=== PATIENT | female | born 1985 | race African-American/Black ===

== ENCOUNTER 2016-12-15 21:29 | Emergency (ER) | payer MEDICAID ==
[~2016-12-15] VITALS: Ht 165.1 cm; Wt 95.2 kg
--- NOTE | ~2016-12-15 | CT2 ---
[facility] A Service of [facility] RADIOLOGY TEXT RESULTS PATIENT: RUPERTO HUSTON LOCATION: [facility]FT[facility] : 89 UNIT #: [id number] AGE: [address]: Luciano Montano SEX: F ORDER DR: [id number] [place], [place] [address] [id number] MR#: [id number] Acc #: [id number] NAME: RUPERTO HUSTON : 1985 SEX: F STUDY DATE/TIME: 12/16/2016 1:14 UNIT: CFTX ROOM: STUDY DESCRIPTION: CT Abd and Pelv W Cont Attending Physician: Luciano Montano Ordering Physician: Luciano Montano Primary Care Physician: Primary Care Physician No MEDICAL IMAGING REPORT This report is preliminary unless electronic signature is present EXAM CT abdomen and pelvis with contrast INDICATION Abdominal cramping, heavy vaginal bleeding for the past 2 days with right-sided abdominal pain. PROCEDURE Contrast-enhanced CT of the abdomen and pelvis. This CT examination was performed with one or more of the following radiation dose reduction techniques: automatic exposure control, adjustment of mA and/or kV according to patient size, and iterative reconstruction. COMPARISON None. FINDINGS ABDOMEN WITH CONTRAST: Included lung bases are clear. The liver, spleen, kidneys, adrenal glands, pancreas and gallbladder show no acute abnormality. 4-5 mm stone in the gallbladder, but no evidence for active inflammation. Moderate colonic stool burden. Appendix is not well seen on this study but is nondilated. PELVIS WITH CONTRAST: 2.8 cm cyst in the right adnexa. Small amount of fluid in the pelvis. No aggressive appearing bone lesion. IMPRESSION 1. No acute findings. 2. 2.8 cm right adnexal cyst within physiologic limits for the patient's age. 3. Uncomplicated cholelithiasis. 4. Appendix not well seen but visualized portions are nondilated. [facility] A Service of [facility] RADIOLOGY TEXT RESULTS PATIENT: RUPERTO HUSTON LOCATION: [place] : [birth year] UNIT #: [id number] AGE: [address]: Luciano Montano SEX: F ORDER DR: Dictated by... Ac Ordonez M.D. THIS IS AN ELECTRONICALLY VERIFIED REPORT Ac Ordonez M.D. at 12/16/2016 9:52 PM ADEN/eileen TD: 12/16/2016 13:39 JOB #: [id number] MEDICAL IMAGING REPORT Page 1 of 1 COPY
[2016-12-15 23:26] LABS: URINE SOURCE CLEAN CATCH
[2016-12-15 23:31] LABS: URINE APPEARANCE CLEAR; URINE BILIRUBIN NEG (NEG); URINE BLOOD 3+ (NEG); URINE COLOR YELLOW; URINE GLUCOSE NEG (NEG); URINE KETONE TRACE (NEG); URINE LEUKOCYTE ESTERASE NEG (NEG); URINE NITRATE NEG (NEG); URINE PROTEIN NEG (NEG); URINE SPECIFIC GRAVITY 1.022 (1.003-1.035); URINE UROBILINOGEN 0.2 MG/DL (NEG)
[2016-12-15 23:34] LABS: URBCS1 AUWI 0-2 /[HPF] (0-2); URINE BACTERIA AUWI NEG (NEGATIVE); URINE SQUAMOUS EPITHELIAL CELL NONE SEEN /[HPF]; UWBCS1 AUWI 0-2 (0-5)
[2016-12-15 23:35] LABS: CULTURE INDICATED? NO
[2016-12-16 00:05] LABS: BASOPHIL# 0.1 X10e3 (0-0.3); BASOPHIL% 1.2 % (0-2.5); EOSINOPHIL# 0.1 X10e3 (0-0.7); EOSINOPHIL% 1.2 % (0.0-7.0); HEMATOCRIT 37.9 % (35.0-45.0); HEMOGLOBIN 12.2 gm/dL (12.0-16.0); LYMPHOCYTE# 3.7 X10e3 (1.0-3.5); LYMPHOCYTE% 44.9 % (17.0-45.0); MEAN CELL VOLUME 80.3 FL (83-96); MEAN CORPUSCULAR HEMOGLOBIN 25.9 PG (28-34); MEAN CORPUSCULAR HGB CONC 32.3 g/dL (30-36); MEAN PLATELET VOLUME 9.6 FL (6.5-11.5); MONOCYTE# 0.6 X10e3 (0-1.0); MONOCYTE% 7.5 % (3.0-12.0); NEUTROPHIL# 3.7 X10e3 (1.5-7.1); NEUTROPHIL% 45.2 % (40-75); PLATELET COUNT 220 X10e3 (140-420); RED BLOOD COUNT 4.72 X10e (3.90-5.30); RED CELL DISTRIBUTION WIDTH 13.9 % (11.0-15.5); WHITE BLOOD COUNT 8.3 X10e3 (4.0-10.5)
[2016-12-16 00:06] LABS: DIFF IND NO
[2016-12-16 00:28] LABS: ALBUMIN SERUM 4.3 g/dL (3.5-5.0); BILIRUBIN,TOTAL 0.6 mg/dL (0.2-2.0); CALCIUM SERUM 8.7 mg/dL (8.4-10.2); GLOM FILT RATE Estimated 88.2 mL/min (>60); POTASSIUM 3.5 mmol/L (3.5-5.1); PROTEIN TOTAL SERUM 7.7 g/dL (6.0-8.3)
[2016-12-18 00:31] LABS: CHLAMYDIA TRACH Not Detected (Not Detected); N GONOR Not Detected (Not Detected)
[2017-02-09] MEDS ORDERED: BENAZEPRIL HCL40 MG PO (13:50)
[2017-02-09] MEDS ORDERED: HYDROCHLOROTHIA25 MG PO (13:51)
[2017-02-09] MEDS ORDERED: CLARITIN10 M3 PO (13:51)
== END 2016-12-16 02:33 | disposition home or self-care (01) ==
LOC: CED 21:29 → CFTX 21:29
PROVIDERS: Nurse Practitioner
DX: N76.0 Acute vaginitis (principal); I12.9 Hypertensive chronic kidney disease with stage 1 through stage 4 chronic kidney disease, or unspecified chronic kidney disease; I50.9 Heart failure, unspecified; N83.209 Unspecified ovarian cyst, unspecified side; F17.210 Nicotine dependence, cigarettes, uncomplicated; Z88.5 Allergy status to narcotic agent
CPT/HCPCS: 36415; 74177; 80053; 81003; 83690; 84703; 85025; 87491; 87591; 87808; 87905; 96374; 99284; J1885; Q9967

== ENCOUNTER → 2017-02-10 | Day surgery (SDC) | payer MEDICAID ==
[~2017-02-10] MED LIST: BENAZEPRIL HCL40 MG PO; CLARITIN10 M3 PO; HYDROCHLOROTHIA25 MG PO
--- NOTE | ~2017-02-10 | OR ---
Unit #: [id number] #: [id number] Patient: RUPERTO HUSTON [id number] [address] [place], [place] [address] [id number] O MR#: [id number] NAME: RUPERTO HUSTON ROOM: Date of Procedure: 02/10/2017 Admission Date: 02/10/2017 Surgeon: Rob Arreola Jr., M.D. : 1985 Attending Physician: Rob Arreola Jr., M.D. Primary Care Physician: Armando Knox OPERATIVE REPORT INDICATIONS FOR PROCEDURE The patient is a 31-year-old obese black female, who recently presented to the office complaining of abdominal pain with severe diarrhea. There is a question that she may have colitis, also she has had a strong family history of colon polyps and it was felt for these 2 reasons she needed a colonoscopy. PREOPERATIVE DIAGNOSIS Possible colitis, possible colon polyps. POSTOPERATIVE DIAGNOSIS Normal exam to the distal ileum. There were a few diverticula in the left colon. ANESTHESIA MAC anesthesia. PROCEDURE PERFORMED Flexible colonoscopy to the distal ileum. DESCRIPTION OF PROCEDURE The patient was positioned in Rodriguez position with left side down. After being given MAC anesthesia, digital rectal examination was performed, which revealed no palpable mass or tenderness. No blood or stool in the rectal ampulla. The Olympus colonoscope was advanced in the anal canal up the rectum and retroflexed down to the area of the anorectal region. There was no evidence of any fissures. No significant internal hemorrhoids. The scope was then straightened and advanced up in the rectosigmoid, in the sigmoid and descending colon areas, where there were only one or two diverticula encountered without diverticulitis. The scope was then advanced around the splenic flexure and the transverse colon, around hepatic flexure and ascending colon, down in the area of the cecum. The light from the tip of the scope could be seen transilluminating through the right lower quadrant abdominal wall area. The scope was advanced up the distal ileum approximately 10 to 12 inches. There was no evidence of any ileitis or inflammatory bowel disease. The scope was slowly removed. There were no tumors, polyps, cancer, or AVMs. No evidence of any colitis or acute diverticulitis. The caliber of the colon appeared normal throughout without evidence of narrowing or obstruction. The scope was removed. The patient tolerated the procedure well and discharged in satisfactory condition. Unit #: [id number] #: [id number] Patient: RUPERTO HUSTON Dictated by... Rob Arreola Jr., MEsther HARMON/jesse TD: 02/10/2017 12:11 JOB #: [id number] OPERATIVE REPORT Page 1 of 1 X Rob Arreola MD X PROCEDURE OPERATIVE NOTE
--- NOTE | ~2017-02-10 | EKG ---
PATIENT: RUPERTO HUSTON UNIT #: [id number] Ventricular Rate: 56 BPM Atrial Rate: 56 BPM P-R Interval: 166 ms QRS Duration: 84 ms Q-T Interval: 430 ms QTC Calculation(Bezet): 414 ms P Firebaugh: 0 degrees Calculated R Firebaugh: 15 degrees Calculated T Firebaugh: 3 degrees Diagnosis Line: Sinus bradycardia with sinus arrhythmia Diagnosis Line: Otherwise normal ECG Diagnosis Line: No previous ECGs available Diagnosis Line: Confirmed by ANIA SADLER MD ([id number]) on Diagnosis Line: 02/10/2017 2:11:36 PM INTERPRETING MD: VIKTORIYA RIOS
[2017-02-10 10:15] LABS: ALBUMIN SERUM 3.6 g/dL (3.5-5.0); BILIRUBIN,TOTAL 0.8 mg/dL (0.2-2.0); BUN/CREATININE RATIO 7.77; CALCIUM SERUM 8.7 mg/dL (8.4-10.2); CREATININE SERUM 0.9 mg/dL (0.6-1.4); GLOM FILT RATE Estimated 100.2 mL/min (>60); POTASSIUM 3.9 mmol/L (3.5-5.1)
== END | disposition home or self-care (01) ==
LOC: COPS 08:29
PROVIDERS: Surgery
DX: K57.30 Diverticulosis of large intestine without perforation or abscess without bleeding (principal); R19.7 Diarrhea, unspecified; K80.20 Calculus of gallbladder without cholecystitis without obstruction; I11.0 Hypertensive heart disease with heart failure; I50.9 Heart failure, unspecified; I42.9 Cardiomyopathy, unspecified; E66.01 Morbid (severe) obesity due to excess calories; Z68.38 Body mass index [BMI] 38.0-38.9, adult; Z83.71 Family history of colonic polyps; Z88.5 Allergy status to narcotic agent
CPT/HCPCS: 80053; 84703; 93005; J2250

== ENCOUNTER → 2017-02-12 | Day surgery (SDC) | payer MEDICAID ==
--- NOTE | ~2017-02-12 | OR ---
Unit #: [id number] #: [id number] Patient: RUPERTO HUSTON [id number] [address] [place], [place] [address] [id number] O MR#: [id number] NAME: RUPERTO HUSTON ROOM: Date of Procedure: 02/12/2017 Admission Date: 02/12/2017 Surgeon: Rob Arreola Jr., M.D. : 1985 Attending Physician: Rob Arreola Jr., M.D. Primary Care Physician: Armando Knox OPERATIVE REPORT INDICATIONS FOR PROCEDURE The patient is a 31-year-old black female, who recently presented to the office complaining of intermittent mid epigastric and right upper quadrant abdominal pain. She has had a workup and noted to have gallstones with evidence of chronic cholecystitis. It was felt she needed laparoscopic cholecystectomy. She is brought in this time at her request for this procedure. She understands the procedure including the risks, including that of common duct injury, biliary leak, and bleeding, and intra-abdominal organ injury, and consents. PREOPERATIVE DIAGNOSES Chronic cholecystitis with cholelithiasis. POSTOPERATIVE DIAGNOSES Chronic cholecystitis with cholelithiasis, also noting some adhesions in the lower abdomen. ANESTHESIA General with endotracheal intubation and 0.25% Marcaine with epinephrine locally in the port sites. PROCEDURE PERFORMED Laparoscopic cholecystectomy. DESCRIPTION OF PROCEDURE The patient was positioned in supine position. After being anesthetized and intubated, she was prepped and draped in routine fashion for laparoscopic cholecystectomy. A small incision was made in the supraumbilical area approximately a centimeter in length. This was carried down to the fascia. Fascia lifted between 2 Vinod clamps and a Veress needle introduced into the abdomen. The abdomen was then inflated with CO2 gas. A 5-mm port was introduced into the abdomen followed by the camera. There was no evidence of any injury related to introduction of the port of the Veress needle. Brief intra-abdominal exploration was carried out. The patient was noted to have multiple adhesions in the lower abdomen, but no evidence of any other specific abnormalities except for what appeared to be a chronically inflamed gallbladder. Two 5-mm ports were placed laterally and an 11-mm port just to the right of the upper midline. The gallbladder was lifted. Dissection was carried out in the triangle of Calot, cystic duct was isolated, which was noted to be only 1 to 2 mm in diameter. It was hemoclipped x4 and divided Unit #: [id number] #: [id number] Patient: RUPERTO HUSTON approximately a centimeter from its junction with the common duct. The common duct appeared normal. Cystic artery was identified, hemoclipped x3, and divided. The gallbladder was then removed from its bed with the hook cautery using a current of 20 and after it was released, it was placed in the EndoCatch bag and brought out through the larger port site. The port was replaced. Subhepatic space checked. There was no evidence of any bleeding from the gallbladder bed. The clips on cystic duct and cystic artery were intact with no evidence of any leak or bleeding. After small amount of bile was removed with one 4 x 4 sponge packed in the abdomen and brought directly out, the ports were removed. There was no evidence of any bleeding from the port sites. The CO2 was expressed from the abdomen. The fascia in the larger port site was approximated with the neoClose technique. After the port sites were injected with 0.25% Marcaine with epinephrine, the wounds were irrigated. Hemostasis was achieved with Bovie cautery. The skin edges approximated with stainless-steel skin clips and skin stapling device. Sterile dressings were applied externally. Estimated blood loss minimal, less than 25 mL. The patient received less than 1000 mL crystalloid solution during the procedure. Sponges and instrument counts were correct x3. No drains used. No complications. The patient was taken to the recovery room with stable vital signs in satisfactory condition. Dictated by... Rob Arreola Jr., M.D. JMB/jesse TD: 02/12/2017 11:33 JOB #: [id number] OPERATIVE REPORT Page 1 of 1 X Rob Arreola MD PROCEDURE OPERATIVE NOTE
== END | disposition home or self-care (01) ==
LOC: CSUR 08:19
PROVIDERS: Surgery
PROC: 0FT44ZZ Resection of Gallbladder, Percutaneous Endoscopic Approach (ICD-10-PCS; principal; 2017-02-12 09:30)
DX: K80.10 Calculus of gallbladder with chronic cholecystitis without obstruction (principal); K66.0 Peritoneal adhesions (postprocedural) (postinfection); R59.9 Enlarged lymph nodes, unspecified; I10 Essential (primary) hypertension; I42.9 Cardiomyopathy, unspecified; E66.01 Morbid (severe) obesity due to excess calories; Z68.38 Body mass index [BMI] 38.0-38.9, adult; R19.7 Diarrhea, unspecified; Z79.899 Other long term (current) drug therapy; Z88.5 Allergy status to narcotic agent
CPT/HCPCS: 84703; 88304; J0690; J1100; J1170; J1650; J1885; J3010